=== PATIENT | male | born 1985 | race Caucasian/White ===

== ENCOUNTER 2020-06-15 12:26 | Emergency (ER) | payer OTHER, SELFPAY ==
[2020-06-15 12:31] VITALS: BP 123/64; PULSE 72; RESP 16; TEMP 36.7; O2SAT 99; BMI 26.2
--- NOTE | 2020-06-15 14:16 | ED.BACK ---
HPI - Back Pain/Injury General Chief Complaint: Back Pain/Injury Stated Complaint: back/leg pain - Time Seen by Provider: 06/15/20 14:16 Source: patient Mode of arrival: ambulatory Limitations: no limitations History of Present Illness HPI Narrative: c/o intermittent blood on stools - chronic issue has been seen before and had CT scan cannot get a hold of his PCP MD elicited complaint: back pain Onset (ago): day(s) (yesterday) Timing: constant Severity: moderate Similar Symptoms Previously: No Quality: dull Location: lumbar spine Radiation: left upper leg Exacerbating factors: movement Relieving factors: none Associated symptoms: denies other symptoms Work related injury: No Related Data Previous Rx's Medication Instructions Recorded cyclobenzaprine 10 mg PO TID PRN #14 tab 06/15/20 lidocaine 1 patch TOPICAL DAILY PRN #10 ea 06/15/20 prednisone 40 mg PO DAILY 5 Days #10 tab 06/15/20 Allergies Allergy/AdvReac Type Severity Reaction Status Date / Time No Known Allergies Allergy Unverified 02/11/20 19:39 Review of Systems Review of Systems: Constitutional : No Weight loss, No Fever, No Chills, ENT/Mouth : No Hearing loss, No Ear Pain, No Nasal Congestion, No Sinus Pain, No Hoarseness, No sore throat, No Rhinorrhea, No Swallowing Difficulty Cardiovascular : No Chest Pain, No SOB Respiratory : No Cough, No Dyspnea Gastrointestinal : No Nausea, No Vomiting, No Diarrhea, No abdominal Pain, intermittent blood seen on stool with BMs Genitourinary : No Dysuria, No Urinary Frequency, No Hematuria, No Urinary Incontinence, Musculoskeletal : positive back pain Skin : No Skin Lesions, No rash Neuro : No Weakness, No Numbness, No Paresthesias, no loss of bowel or bladder incontinence, no saddle anesthesia PMFSH Past Medical History Attestation statement: The following information was validated with the patient. Medical History No known health problems Social History Social History Smoked in Last 30 Days: No Use of substances other than those prescribed or required for medical reasons: No Advance Directives: No Advance Directives Information Provided: No Physical Exam Vital Signs: Vital Signs: Last Vital Signs Temp 98.1 F 06/15/20 12:31 Pulse 72 06/15/20 12:31 Resp 16 06/15/20 12:31 BP 123/64 06/15/20 12:31 Pulse Ox 99 06/15/20 12:31 Body Mass Index 26.2 Appearance: Alert. Oriented X3. No acute distress. Eyes: Pupils equal, round and reactive to light. ENT: Pharynx normal. Neck: Normal inspection. Neck supple. CVS: Normal heart rate and rhythm. Pulses normal. Respiratory: No respiratory distress. Breath sounds normal. Abdomen: Soft and nontender. Rectal: small internal hemorrhoids, brown stools Back: L sided lower lumbar pain SILT inner thigh 2+ DTR in patella Skin: Skin warm and dry. Normal skin color. Normal skin turgor. Extremities: No lower extremity edema. No calf ttp Neuro: Oriented X 3. No motor deficit. No sensory deficit. MDM - Back Pain/Injury MDM Narrative Medical decision making narrative: 34 yo male with intermittent rectal bleeding has been seen before on exam hs internal hemorrhoids - no AC therapy, discussed need for colonoscopy will give GI number, patient also c/o L lower back pain radiating down leg no b/b incontinence, no saddle anesthesia no abdominal pain - consistent with sciatica will start on supportive treatments Discharge Plan Discharge Clinical Impression: Lumbar radiculopathy, Hemorrhoids, internal Patient Disposition: Home, Self-Care Instructions: Hemorrhoids (ED), Lumbar Radiculopathy (ED) Additional Instructions: return to ED for any worsening symptoms or concerns Prescriptions: New cyclobenzaprine 10 mg tablet 10 mg PO TID PRN (Reason: muscle spasm) Qty: 14 RF: 0 lidocaine 4 % adhesive patch,medicated 1 patch topical DAILY PRN (Reason: pain) Qty: 10 RF: 0 prednisone 20 mg tablet 40 mg PO DAILY 5 Days Qty: 10 RF: 0 Referrals: David Angulo [Physician] - 1 week Stand Alone Forms: Work/School Release
--- NOTE | 2020-06-15 14:26 | PC.NURSE ---
dr badillo at bedside for rectal exam, this rn present
== END 2020-06-15 14:44 | disposition home or self-care (01) ==
PROVIDERS: Emergency Provider Emergency Medicine
DX: M54.16 Radiculopathy, lumbar region (principal); K64.8 Other hemorrhoids; M54.5 Low back pain; Z79.899 Other long term (current) drug therapy
CPT/HCPCS: 99284